=== PATIENT | female | born 1965 | race African-American/Black ===

== ENCOUNTER 2017-05-19 18:17 | Emergency (ER) | payer OTHER ==
[~2017-05-19] VITALS: Ht 160 cm; Wt 80.3 kg
--- NOTE | 2017-05-19 18:51 | NUR ---
URINE SAMPLE COLLECTED SENT TO LAB
[2017-05-19 18:56] LABS: APPEARANCE,URINE CLOUDY (CLEAR); BILIRUBIN,URINE NEGATIVE (NEGATIVE); BLOOD, URINE 3+ Ery/uL (NEGATIVE); COLOR,URINE AMBER (YELLOW); KETONES,URINE TRACE (NEGATIVE); LEUKOCYTE ESTERASE ,URINE 1+ (NEGATIVE); NITRITE, URINE POSITIVE (NEGATIVE); PH,URINE 6.5 (5.0-8.0); PROTEIN,URINE 3+ mg/dl (NEGATIVE); UGLUCOSE NEGATIVE (NEGATIVE)
[2017-05-19 19:13] LABS: RBC,URINE TOO NUMEROUS TO COUN /HPF (0-2)
[2017-05-19 19:14] LABS: BACTERIA,URINE Many /HPF (None Seen); SQUAMOUS EPITHELIAL CELL,UR Few /HPF (None Seen)
--- NOTE | 2017-05-19 19:20 | NUR ---
FEATURES EDITOR AT FOR BLOOD DRAW.
[2017-05-19 19:22] LABS: BASOPHILS % (AUTO) 0.4 % (0.0-2.0); EOSINOPHILS # (AUTO) 0.2 /CMM (0.0-0.7); EOSINOPHILS % (AUTO) 2.9 % (0.0-6.0); HEMATOCRIT 33 % (33-45); HEMOGLOBIN 10.6 g/dL (11.5-14.8); LYMPHOCYTES # (AUTO) 1.2 /CMM (0.8-4.8); LYMPHOCYTES % (AUTO) 22.1 % (20.0-44.0); MEAN CORPUSCULAR HEMOGLOBIN 25 PG (26.0-33.0); MEAN CORPUSCULAR HGB CONC 32 g/dl (31.0-36.0); MEAN CORPUSCULAR VOLUME 78 fL (82-100); MONOCYTES # (AUTO) 0.4 /CMM (0.1-1.30); MONOCYTES % (AUTO) 6.8 % (2.0-12.0); NEUTROPHILS # (AUTO) 3.5 /CMM (1.8-8.9); NEUTROPHILS % (AUTO) 67.8 % (43.0-81.0); PLATELET COUNT (AUTO) 201 /CMM (150-450); RDW COEFFICIENT OF VARIATION 15.2 (11.5-15.0); RED BLOOD CELL COUNT(AUTO) 4.24 MIL/uL (4.0-5.2); WHITE BLOOD COUNT (AUTO) 5.3 K/uL (4.3-11.0)
[2017-05-19 19:32] LABS: CREATININE 0.7 mg/dL (0.6-1.3); POTASSIUM 4.3 mmol/L (3.5-5.1)
[2017-05-19 19:36] LABS: INR 0.99 (0.87-1.13); PROTHROMBIN TIME 10.3 SECS (9.5-12.7)
[2017-05-19] MEDS ORDERED: NITROFURANTOIN/NITROFURAN MAC 100 MG CAPSULE ONE (19:48)
--- NOTE | 2017-05-19 19:54 | NUR ---
Patient does not wish to proceed with medical care recommended by REUBEN Lopez. Patient given information related to possible complications, up to and including , which could occur as a result of leaving the hospital at this time. Patient verbalizes understanding of risks involved due to leaving against medical advice. Patient has signed AMA form. JUAN CARLOS, DOLORES non DC.
[2017-05-19 19:56] VITALS: BP 122/85
[2017-05-19] MEDS ORDERED: NITROFURANTOIN/NITROFURAN MAC 100 MG CAPSULE PO ONE (20:00)
== END 2017-05-19 19:58 | disposition left against medical advice (07) ==
LOC: ER 18:28
DX: N30.81 Other cystitis with hematuria (principal); D64.9 Anemia, unspecified; C50.919 Malignant neoplasm of unspecified site of unspecified female breast; C73 Malignant neoplasm of thyroid gland; Z87.442 Personal history of urinary calculi; Z90.710 Acquired absence of both cervix and uterus; Z92.21 Personal history of antineoplastic chemotherapy; Z88.2 Allergy status to sulfonamides; Z88.5 Allergy status to narcotic agent; Z88.8 Allergy status to other drugs, medicaments and biological substances; Z98.890 Other specified postprocedural states; Z53.20 Procedure and treatment not carried out because of patient's decision for unspecified reasons
CPT/HCPCS: 36415; 80048; 81001; 85025; 85730; 87077; 87086; 87186; 99284; A4606; Z7610; 81000-TC